=== PATIENT | male | born 1985 | race Caucasian/White ===

== ENCOUNTER 2018-03-14 12:59 | Outpatient (CLI) | payer OTHER, SELFPAY ==
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
== END 2018-03-14 13:19 ==
PROVIDERS: Visit Provider Physician Assistant
DX: M25.522 Pain in left elbow (principal); S59.801A Other specified injuries of right elbow, initial encounter
CPT/HCPCS: 73080

== ENCOUNTER 2018-12-29 19:09 | Emergency (ER) | payer SELFPAY ==
[2018-12-29 19:14] VITALS: BP 120/74; PULSE 66; RESP 16; TEMP 36.7; O2SAT 96
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
[2018-12-29] MEDS: Ibuprofen 600 MG TAB PO (19:38)
[2018-12-29] MEDS: Bupivacaine 0.5% Pres-Free 30 ML VIAL IJ (19:38)
[2018-12-29] MEDS: Lidocaine 4% Cream 5 GM TUBE TP (19:39)
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
== END 2018-12-29 20:53 | disposition home or self-care (01) ==
LOC: ER 20:58
PROVIDERS: Emergency Provider Student in an Organized Health Care Education/Training Program
DX: S51.811A Laceration without foreign body of right forearm, initial encounter (principal); S50.811A Abrasion of right forearm, initial encounter; V17.0XXA Pedal cycle driver injured in collision with fixed or stationary object in nontraffic accident, initial encounter
CPT/HCPCS: 12001